=== PATIENT | female | born 2000 ===

== ENCOUNTER 2023-10-08 21:50 | Emergency (ER) | payer MEDICAID ==
[~2023-10-08] VITALS: Ht 162.6 cm; Wt 77.5 kg
[~2023-10-08 21:50] MED LIST: DOCU-94 PO; NITR-87 PO
[2023-10-08 22:22] LABS: Basophils # (auto) 0 10 ^3/uL (0-0.2); Basophils % (auto) 0.3 % (0.0-2.0); Eosinophils # (auto) 0 10 ^3/uL (0-0.8); Eosinophils % (auto) 0.5 % (0.0-7.0); Hemoglobin 13.7 g/dL (12.2-16.2); Lymphocytes # (auto) 0.5 10 ^3/uL (0.4-5.4); Lymphocytes % (auto) 8.3 % (10.0-50.0); Mean Corpuscular Hemoglobin 30.9 pg (28.0-32.0); Mean Corpuscular Hgb Conc. 34.2 g/dL (32.0-36.0); Mean Corpuscular Volume 90.4 fL (80.0-100.0); Monocytes # (auto) 0.4 10 ^3/uL (0-1.3); Monocytes % (auto) 5.7 % (0.0-12.0); Neutrophils # (auto) 5.6 10 ^3/uL (1.6-8.6); Neutrophils % (auto) 85.2 % (37.0-80.0); Red Blood Cells 4.42 10^6/uL (4.0-5.20); Red Cell Distribution Width 14.5 % (11.8-14.3); White Blood Cell 6.6 10^3/uL (4.4-10.8)
[2023-10-08 22:42] LABS: Alanine Aminotransferase 25 U/L (7-40); Albumin 4.1 g/dL (3.2-4.8); Alkaline Phosphatase 56 U/L (46-116); Anion Gap 8 (5-15); Aspartate Aminotransferase 21 U/L (13-40); BUN/Creatinine Ratio 10.2 (10.0-20.0); Blood Urea Nitrogen 6 mg/dL (9-23); Calcium 8.9 mg/dL (8.7-10.4); Carbon Dioxide 23 mmol/L (20-30); Chloride 103 mmol/L (98-107); Glucose 96 mg/dL (74-106); Lipase 35 U/L (12-53); Potassium 3.7 mmol/L (3.5-5.1); Sodium 134 mmol/L (136-145)
[2023-10-08 22:43] LABS: Bilirubin, Total 0.7 mg/dL (0.2-1.0); Total Protein 6.9 g/dL (5.7-8.2)
[2023-10-09 00:32] LABS: Urine Bacteria NONE SEEN /hpf (None Seen); Urine Blood Negative /uL (Negative); Urine Clarity Clear (Clear); Urine Color Yellow (Yellow); Urine Mucus FEW (None Seen); Urine Protein, UAD TRACE (Negative); Urine Specific Gravity 1.019 (1.001-1.035); Urine WBC 17 /hpf (0 - 5); Urine pH 6.5 (5.0-8.0)
[2023-10-09] MEDS ORDERED: NITR-87 PO (01:33)
[2023-10-09 02:07] VITALS: BP 114/49; PULSE 102; RESP 19; TEMP 99.4; O2SAT 100
== END 2023-10-09 02:12 | disposition home or self-care (01) ==
LOC: ER 21:50
DX: O23.42 Unspecified infection of urinary tract in pregnancy, second trimester (principal); R10.2 Pelvic and perineal pain; N39.0 Urinary tract infection, site not specified; Z79.899 Other long term (current) drug therapy; Z3A.17 17 weeks gestation of pregnancy
CPT/HCPCS: 36415; 80053; 81001; 83690; 84702; 85025